=== PATIENT | female | born 1980 | race Two or more races ===

== ENCOUNTER 2016-12-04 07:18 | Day surgery (SDC) | payer MEDICAID ==
[2016-12-03 14:03] VITALS: BMI 27.3
[2016-12-04] VITALS (9 sets, daily range): BP systolic 108–140; BP diastolic 66–76; PULSE 55–89; RESP 10–20; Ht 160 cm; Wt 70.0 kg
[~2016-12-04] VITALS: Ht 160 cm; Wt 70.0 kg
[2016-12-04] MEDS ORDERED: SOD CHLORIDE 0.9% 1,000 ML IV SCH (07:30)
[2016-12-04] MEDS ORDERED: CEFAZOLIN 2 GM/50 ML (PMX) 50 ML IVPB ONE (07:30)
[2016-12-04 08:34] LABS: BASOPHILS % 0.5 % (0.0-2.0); EOSINOPHILS # 0.1 10^3/ul (0.0-0.5); EOSINOPHILS % 1.1 % (0.0-7.0); HEMATOCRIT 34.2 % (37.0-47.0); HEMOGLOBIN 11.5 g/dl (12.0-16.0); LYMPHOCYTES # 2.3 10^3/ul (0.8-2.9); LYMPHOCYTES % 35.4 % (15.0-51.0); MEAN CORPUSCULAR HEMOGLOBIN 30.2 pg (29.0-33.0); MEAN CORPUSCULAR HGB CONC 33.6 g/dl (32.0-37.0); MEAN CORPUSCULAR VOLUME 89.8 fl (82.0-101.0); MONOCYTE # 0.5 10^3/ul (0.3-0.9); MONOCYTES % 7.1 % (0.0-11.0); NEUTROPHILS % 55.6 % (39.0-77.0); PLATELET COUNT 274 10^3/UL (140-415); RED BLOOD COUNT 3.81 10^6/ul (4.20-5.40); RED CELL DISTRIBUTION WIDTH 11.9 % (11.5-14.5); WHITE BLOOD COUNT 6.4 10^3/ul (4.8-10.8)
[2016-12-04 08:54] LABS: INR 0.91; PROTIME 12.3 Sec (12.2-14.2)
[2016-12-04 08:55] LABS: PARTIAL THROMBOPLASTIN TIME 26.3 Sec (25.0-35.0)
[2016-12-04 09:01] LABS: ALBUMIN 3.9 g/dl (3.3-4.9); ALBUMIN/GLOBULIN RATIO 1.3; BILIRUBIN,INDIRECT 0.1 mg/dl (0-1.1); BILIRUBIN,TOTAL 0.1 mg/dl (0.2-1.3); TOTAL PROTEIN 6.9 g/dl (6.1-8.1)
[2016-12-04 09:05] LABS: CALCIUM 8.4 mg/dl (8.4-10.2); CREATININE 0.56 mg/dl (0.44-1.00); POTASSIUM 4.7 mmol/L (3.5-5.1)
[2016-12-04] MEDS ORDERED: FENTAnyl 50 MCG/ML VIAL IV PRN ×3 (10:00)
[2016-12-04] MEDS ORDERED: ONDANSETRON 4 MG INJ IV PRN (10:00)
[2016-12-04] MEDS ORDERED: METOCLOPRAMIDE 10 MG INJ IV PRN (10:00)
[2016-12-04] MEDS ORDERED: LIDOCAINE 2% (SDV) 5 ML INJ ONE (10:00)
[2016-12-04] MEDS ORDERED: CEFAZOLIN 1 GM INJ ONE (10:00)
[2016-12-04] MEDS ORDERED: PROPOFOL 20 ML ONE (10:00)
[2016-12-04] MEDS ORDERED: HYDROmorphONE (0.2 MG/ML) 10ML SYG IV PRN ×2 (10:00)
[2016-12-04] MEDS ORDERED: MEPERIDINE 25 MG INJ IV PRN (10:00)
[2016-12-04] MEDS ORDERED: OXYCODONE/ACETAMINOPHEN (5/325) TAB PO PRN ×2 (10:00)
[2016-12-04] MEDS ORDERED: EPHEDrine SULFATE 50 MG/5 ML SYG IV PRN (10:00)
[2016-12-04] MEDS ORDERED: DIPHENHYDRAMINE 50 MG INJ IV PRN (10:00)
[2016-12-04] MEDS ORDERED: hydrALAzine 20 MG INJ IV PRN (10:00)
[2016-12-04] MEDS ORDERED: MEPERIDINE 100 MG INJ ONE (10:00)
[2016-12-04] MEDS ORDERED: MIDAZOLAM 1 MG/ML 2 ML INJ IV PRN (10:00)
[2016-12-04] MEDS ORDERED: LABETALOL HCL 20MG INJ IV PRN (10:00)
[2016-12-04] MEDS ORDERED: METOCLOPRAMIDE 10 MG INJ ONE (10:01)
[2016-12-04] MEDS ORDERED: ONDANSETRON 4 MG INJ ONE (10:01)
[2016-12-04] MEDS ORDERED: ATROPINE 1 MG/10 ML SYRINGE ONE (10:21)
[2016-12-04] MEDS: HYDROmorphONE (0.2 MG/ML) 10ML SYG IV PRN ×2 (11:19→12:06)
--- NOTE | 2016-12-04 11:24 | OPR ---
Date/Time of Note Date/Time of Note DATE: 12/04/16 TIME: 11:20 Operative Report Preoperative Diagnosis Right breast mass Postoperative Diagnosis Same Operation/Procedure Performed Right partial mastectomy Surgeon: KAVON LARA MD media center assistant: JACOB BANEGAS MD Anesthesia Type: general Estimated Blood Loss: 10 - 50 ml's Transfusion Required: no Specimens Right breast specimen Grafts/Implants: none Complications: no KAVON LARA MD Dec 04, 2016 11:24
[2016-12-04] MEDS ORDERED: HYDROCODONE/APAP (7.5/325) TAB PO PRN (11:30)
--- NOTE | 2016-12-04 11:37 | OPR ---
DATE OF OPERATION: 12/04/2016 PREOPERATIVE DIAGNOSIS: Fibroepithelial lesion, right breast. POSTOPERATIVE DIAGNOSIS: Fibroepithelial lesion, right breast. OPERATION PERFORMED: Right partial mastectomy. ANESTHESIA: General. ANESTHESIOLOGIST: Dr. Isidoro Lamb. SURGEON: Dr. Juan. COUNTY COMMISSIONER: Dr. Hong. INDICATIONS FOR PROCEDURE: The patient is a 36-year-old female, known to nm. She had previously undergone excision of a right breast lesion with benign etiology. She presented with her 2nd lesion in a similar location. Biopsy confirmed the fibroepithelial lesion. She was counseled as to the risks versus benefits of an excision with right partial mastectomy. She consented and was scheduled for surgery. OPERATIVE PROCEDURE: Patient was brought to the operating theater and placed under general anesthesia. The right breast was prepped and draped in the usual sterile fashion. A periareolar incision was made from approximately the 12 o'clock location through the 10 o'clock location to approximately the 8 o'clock location. Subcutaneous tissue was dissected with cautery. Deep within the breast parenchyma, a well-circumscribed but lobulated mass was identified. It was enucleated with a gloved finger, removed and sent for permanent pathologic analysis. The wound was irrigated. Residual bleeding was controlled with cautery. The skin was then closed with a deep dermal layer of 4-0 Vicryl sutures in interrupted fashion, followed by final skin approximation with 5-0 PDS in subcuticular fashion and Dermabond was applied. The patient tolerated procedure well. ESTIMATED BLOOD LOSS: 20 mL. COMPLICATIONS: There were no complications. DISPOSITION: The patient was transported in stable condition to the recovery room where a circumferential compression dressing was applied. Dictated By: Lc Juan MD /jon/caleb /Document#: [id number]
== END 2016-12-04 13:00 | disposition home or self-care (01) ==
LOC: SDS 07:18
PROVIDERS: ATTEND Surgery Surgical Oncology
DX: D24.1 Benign neoplasm of right breast (principal); E78.5 Hyperlipidemia, unspecified
CPT/HCPCS: 19301; 80053; 85025; 85610; 85730; 88307; J0461; J0690; J1170; J2175; J2405; J2765; Z7512; Z7610